=== PATIENT | female | born 1980 | race Caucasian/White ===

== ENCOUNTER → 2017-05-11 | Outpatient (CLI) | payer OTHER ==
[2017-05-17 00:09] LABS: D001-IgE D pteronyssinus <0.10 kU/L (Class 0); E005-IgE Dog Dander 0.36 kU/L (Class I); G002-IgE Bermuda Grass 0.26 kU/L (Class 0/I); G008-IgE Kentucky Bluegrass 0.48 kU/L (Class I); M001-IgE Penicillium chrysogen < 0.10 kU/L (Class 0); M002 IgE Cladosporium herbaru < 0.10 kU/L (Class 0); M003 IgE Aspergillus fumigatu < 0.10 kU/L (Class 0); M006-IgE Alternaria alternata < 0.10 kU/L (Class 0); T001-IgE Maple/Box Elder < 0.10 kU/L (Class 0); T003-IgE Common Silver Birch < 0.10 kU/L (Class 0); T007-IgE Oak, White < 0.10 kU/L (Class 0); T008-IgE Elm, American < 0.10 kU/L (Class 0); T015-IgE Ash, White < 0.10 kU/L (Class 0); T041-IgE Hickory, White < 0.10 kU/L (Class 0); W001-IgE Ragweed, Short < 0.10 kU/L (Class 0); W009-IgE Plantain, English < 0.10 kU/L (Class 0); W014-IgE Pigweed, Rough < 0.10 kU/L (Class 0); W018-IgE Sheep Sorrel < 0.10 kU/L (Class 0)
== END ==
LOC: M SMT 10:00
PROVIDERS: ATTEND Internal Medicine Pulmonary Disease
DX: J45.30 Mild persistent asthma, uncomplicated (principal); R05 Cough

== ENCOUNTER → 2017-11-01 | Outpatient (CLI) | payer OTHER | LOC: M LRY 19:02 | DX: R07.1 Chest pain on breathing (principal) | CPT/HCPCS: 71046; 87804 ==

== ENCOUNTER → 2017-11-24 | Outpatient (REF) | payer OTHER | LOC: M SFHCLERA 18:17 | DX: R50.9 Fever, unspecified (principal) ==

== ENCOUNTER → 2017-11-24 | Outpatient (CLI) | payer OTHER | LOC: M LRY 19:28 | DX: R09.89 Other specified symptoms and signs involving the circulatory and respiratory systems (principal) | CPT/HCPCS: 71046 ==

== ENCOUNTER 2019-11-14 08:24 | Day surgery (SDC) | payer OTHER ==
[~2019-11-14] VITALS: Ht 165.1 cm; Wt 64.0 kg
[~2019-11-14 08:24] MED LIST: BACITRACIN PWD 50,000 UNITS VIAL As Ordered ONE; BUPIVACAINE LIPOSOME/PF 1.3% 20ML VIAL (13.3MG/ML)(EXPAREL)(C9290 PER1MG) As Ordered ONE; LIDOCAINE 1% MDV 20ML VIAL SQ PRN; LR 1,000 ML IV SCH; NO ITAB PO; PROAAER10 INH
[2019-11-14] MEDS ORDERED: MIDAZOLAM INJ 2 MG/2 ML VIAL (J2250) As Ordered ONE (08:51)
[2019-11-14] MEDS ORDERED: propofoL 200 MG/20 ML VIAL As Ordered ONE (08:51)
[2019-11-14] MEDS ORDERED: ROCURONIUM BROMIDE 50 MG/5 ML VIAL As Ordered ONE (08:52)
[2019-11-14] MEDS ORDERED: dexameTHASONE 4 MG/ML 1ML VIAL (J1100) As Ordered ONE (08:52)
[2019-11-14] MEDS ORDERED: fentaNYL 250 MCG/5 ML INJECTION (J3010) As Ordered ONE (08:52)
[2019-11-14] MEDS ORDERED: LIDOCAINE 2% INJ 100 MG/5 ML SDV (FOR ANES.) As Ordered ONE (08:52)
[2019-11-14] MEDS ORDERED: ONDANSETRON 4MG/2ML VIAL (J2405) As Ordered ONE (08:52)
[2019-11-14] MEDS ORDERED: ceFAZolin SOD 1 GM in D5W MINI-BAG PLUS 50 ML IV ONE (09:00)
[2019-11-14] MEDS ORDERED: SCOPOLAMINE 1MG TRANSDERMAL PATCH TOP ONE (09:30)
[2019-11-14] MEDS ORDERED: PHENYLephrine HCL 500 MCG/5 ML (100MCG/ML) SYRINGE (J2370) As Ordered ONE (10:46)
[2019-11-14] MEDS ORDERED: ePHEDrine SULFATE 25 MG/5 ML(5MG/ML) SYRINGE As Ordered ONE (10:54)
[2019-11-14] MEDS ORDERED: METOCLOPRAMIDE INJ 10MG/2ML VIAL (J2765) As Ordered ONE (11:08)
[2019-11-14] MEDS ORDERED: ACETAMINOPHEN 1000MG 100ML IV BTL (OFIRMEV) (J0131 PER 10MG) As Ordered ONE (11:25)
[2019-11-14] MEDS ORDERED: SUGAMMADEX SODIUM 500 MG/5 ML VIAL (BRIDION) As Ordered ONE (11:59)
[2019-11-14] MEDS ORDERED: HYDROmorphone HCL 2 MG/ML 1ML VIAL (J1170) As Ordered ONE (12:33)
[2019-11-14] MEDS ORDERED: LR 1,000 ML IV SCH ×2 (13:15→13:45)
[2019-11-14] MEDS ORDERED: ONDANSETRON 4MG/2ML VIAL (J2405) IV PRN ×2 (13:15→13:45)
--- NOTE | 2019-11-14 13:15 | POST-OPPD ---
Postoperative Procedure Note Date Of Procedure: Nov 14, 2019 PREOPERATIVE DIAGNOSIS: Panniculitis POSTOPERATIVE DIAGNOSIS: same FINDINGS: pannus extending below mons pubis. Diathesis 7 cm PROCEDURE: Extended panniculectomy, rectus muscle plication. SURGEON: Dr Chua ANESTHESIA: General SPECIMENS: Pannus 977gm ESTIMATED BLOOD LOSS: 50cc REPLACED: none DRAINS: 10 mm MOY x2 COMPLICATIONS: none POSTOPERATIVE CONDITION: stable [id number] FERNANDA CHUA DO Nov 14, 2019 13:15
[2019-11-14] MEDS ORDERED: oxyCODONE 5MG TAB PO PRN (13:45)
[2019-11-14] MEDS ORDERED: HYDROMORPHONE HCL 0.5 MG/ 0.5 ML SYRINGE (J1170 PER 1) IV PRN (13:45)
[2019-11-14] MEDS ORDERED: METOCLOPRAMIDE INJ 10MG/2ML VIAL (J2765) IV PRN (13:45)
[2019-11-14] MEDS ORDERED: fentaNYL 100 MCG/2 ML INJECTION (J3010) IV PRN (13:45)
[2019-11-14 15:30] VITALS: BP 122/71
[2019-11-14] MEDS ORDERED: MORPHINE 4 MG/ML 1ML VIAL/SYRINGE (J2270) IV PRN (15:30)
[2019-11-14 16:00] VITALS: BP 108/70
[2019-11-14 17:00] VITALS: BP 91/53
[2019-11-14] MEDS: ACETAMINOPHEN TAB 650MG DOSE (2X325MG) PO PRN (17:21)
[2019-11-14 18:00] VITALS: BP 92/56
[2019-11-14] MEDS: ceFAZolin SOD 1 GM in D5W MINI-BAG PLUS 50 ML IV SCH (18:11)
[2019-11-14 19:00] VITALS: BP 94/58
[2019-11-14] MEDS: FERROUS SULFATE 325MG TAB PO SCH (21:16)
[2019-11-14 22:00] VITALS: BP 104/59
[2019-11-15] MEDS: ACETAMINOPHEN TAB 650MG DOSE (2X325MG) PO PRN ×3 (00:47→15:21)
[2019-11-15 02:00] VITALS: BP 103/59
[2019-11-15] MEDS: ceFAZolin SOD 1 GM in D5W MINI-BAG PLUS 50 ML IV SCH (02:09)
[2019-11-15 06:00] VITALS: BP 103/59
--- NOTE | 2019-11-15 08:17 | IPNPDOC ---
Subjective General Date Seen: Nov 15, 2019 Subject Chief Complaint/History The patient is a 39-year-old female admitted with a reason for visit of Panniculitis. S/p extended panniculectomy POD 1. Doing well. Pain controlled with Percocet. Tolerating diet Ambulating. Current Medications Current Medications Current Medications Medications (Trade) Dose Ordered Sig/Kimberlee Route PRN Reason Start Time Stop Time Status Last Admin Dose Admin Acetaminophen (Tylenol Tab) 650 mg Q6H PRN PO MILD PAIN (PS 1-4) 11/14/19 13:15 11/15/19 00:47 Cefazolin Sodium 1 gm/Dextrose 50 ml @ 100 mls/hr Q8H IV 11/14/19 19:00 11/15/19 03:29 DC 11/15/19 02:09 Fentanyl Citrate (Sublimaze) 25 mcg Q5MP PRN IV PAIN LEVEL 5-10 11/14/19 13:45 11/14/19 14:45 DC Ferrous Sulfate (Ferrous Sulfate) 325 mg BID PO 11/14/19 21:00 11/14/19 21:16 Hydromorphone HCl (Dilaudid) 0.2 mg Q5MP PRN IV PAIN LEVEL 4-7 11/14/19 13:45 11/14/19 14:45 DC Lactated Ringer's 1,000 ml @ 100 mls/hr Q10H IV 11/14/19 06:00 11/14/19 13:19 DC 11/14/19 08:42 Lactated Ringer's 1,000 ml @ 100 mls/hr Q10H IV 11/14/19 13:15 11/14/19 20:16 DC 11/14/19 17:22 Lactated Ringer's 1,000 ml @ 100 mls/hr Q10H IV 11/14/19 13:45 11/14/19 14:45 DC Lidocaine HCl (LIDOCAINE 1% MDV 20ml) 0.1 ml ONCE PRN SQ DISCOMFORT BEFORE IV START 11/14/19 06:00 11/14/19 13:19 DC Metoclopramide HCl (REGLAN INJection) 10 mg Q6HP PRN IV NAUSEA OR VOMITING 11/14/19 13:45 11/14/19 14:45 DC Miscellaneous (Unresolved Clarification Entry) SEE LABEL COMMENTS DAILY XX 11/14/19 09:00 Morphine Sulfate (Morphine Sulfate Inj) 4 mg Q4H PRN IV SEVERE PAIN (PS 8-10) 11/14/19 15:30 11/14/19 20:14 Ondansetron HCl (ZOFRAN INJection) 4 mg Q4H PRN IV NAUSEA OR VOMITING 11/14/19 13:15 Ondansetron HCl (ZOFRAN INJection) 4 mg Q4HP PRN IV NAUSEA OR VOMITING 11/14/19 13:45 11/14/19 14:45 DC Oxycodone HCl (Roxicodone, Oxyir) 5 mg ASDIRECTED PRN PO PAIN LEVEL 1-4 11/14/19 13:45 11/14/19 14:45 DC Allergies Coded Allergies: levofloxacin (Verified Allergy, Unknown, 11/10/19) Objective Physical Examination Examination GENERAL APPEARANCE:Patient seen, laying in bed, awake, alert, and oriented. Comfortable, in no acute distress. SKIN: Warm and moist. LUNGS: Clear to auscultation bilaterally. No wheezing appreciated. HEART: No chest wall abnormalities. Regular rate and rhythm with no murmurs appreciated. ABDOMEN: Abdomen is soft, non-tender, non-distended. Incision intact. Umbilicus viable. MOY drains with serosanguinous drainage. R55 L20 cc/24hr drain. EXTREMITIES: No edema identified. No calf tenderness. Vital Signs Vital Signs Date Time Temp Pulse Resp B/P (MAP) Pulse Ox O2 Delivery O2 Flow Rate FiO2 11/15/19 06:00 98.5 57 19 103/59 (74) 100 Room Air 11/14/19 13:10 3 I&Os I&O- Last 24 Hours up to 6 AM 11/15/19 06:00 Intake Total 3150 ml Output Total 2325 ml Balance 825 ml Impression Healing well. Continue with guarded ambulation. Regular diet MOY monitoring. D/c planning. Plan / VTE VTE Prophylaxis Ordered?: Yes FERNANDA CHUA DO Nov 15, 2019 08:17
[2019-11-15] MEDS: FERROUS SULFATE 325MG TAB PO SCH (09:12)
[2019-11-15] MEDS ORDERED: PERC5TAB12 PO (11:56)
--- NOTE | 2019-11-16 08:07 | RO ---
DATE OF PROCEDURE: 11/14/2019 PREOPERATIVE DIAGNOSIS: Panniculitis. POSTOPERATIVE DIAGNOSIS: Panniculitis. PROCEDURE: Extended panniculectomy, rectus muscle plication. ATTENDING SURGEON: Laura Munroe DO ANESTHESIA: General. FINDINGS: Pannus extending below mons pubis and rectus diastasis. SPECIMEN SENT: Pannus 977 grams. BLOOD LOSS: 50 mL. REPLACEMENTS NEEDED: None. DRAIN: 10 mm Rafiq-Lewis drain. COMPLICATIONS: No complications. DESCRIPTION OF PROCEDURE: This is a 39-year-old female who had gastric bypass with massive weight loss. Patient had significant diastasis and also significant pannus. She is a good candidate for extended panniculectomy with rectus muscle plication and repair of diastasis. All risks and benefits and alternatives were discussed with the patient in detail. She is ready to proceed. The day of surgery, she was marked in an upright position in preoperative holding area. Informed consent confirmed. Then she was brought into the operating room, placed in supine position. Preoperative antibiotics were given. Sequential stockings placed on her lower calves. General anesthesia was induced. She was prepped and draped in the usual sterile fashion. A Burdick catheter was introduced in the bladder without any difficulties with clear urine. A low incision was marked 7 cm from the labial crease. Then, we started our incision with #10 blade, carrying out the lower abdominal incision. Then, dissection was carried out using electrocautery and the PEAK cautery until umbilicus was identified. Then, a rhomboid incision was made around the umbilicus, leaving it in place. We continued raising flap superiorly to the xiphoid process and the costal margins laterally. The rectus muscle was examined. There was no hernia; however, there was 7 cm diastasis at the mid abdominal line, which was ligated using interrupted #0 Vicryl and then a running #0 PDS suture. Then patient was placed in the reflex position. The excess tissue inferiorly was measured and resected. The flap was readjusted by the lower incision. We started our closure with interrupted #0 Vicryl sutures and followed by #3-0 Monocryl sutures as well. Excess skin laterally was resected, eliminating the dog ears. 10 mm Rafiq-Lewis drain was placed through the lateral portion of the inferior incision. After that closure was completed, we made separate rhomboid incision to bring out the umbilical stump, which was in good vascular perfusion. It was brought out and sutured in place with interrupted #3-0 and #4-0 Monocryl sutures and #5-0 plain gut suture. Lower abdominal incision was dressed with Prineo dressing and a bulky dressing. Umbilicus was dressed with Xeroform and a bulky dressing. Then, compression garment was placed. The patient was extubated in the operating room without any difficulty and was transferred to recovery room in stable condition. DALJIT
== END 2019-11-15 16:05 | disposition home or self-care (01) ==
LOC: M SDC 08:24 → M MS5PR 15:15 → M SDC 11-15 16:05
PROVIDERS: ATTEND Plastic Surgery Surgery of the Hand
DX: M79.3 Panniculitis, unspecified (principal); Z98.84 Bariatric surgery status; D64.9 Anemia, unspecified; G43.909 Migraine, unspecified, not intractable, without status migrainosus; J45.909 Unspecified asthma, uncomplicated; K21.9 Gastro-esophageal reflux disease without esophagitis
CPT/HCPCS: 15830; 15847; 88302; 96361; 96365; 96366; 96375; C9290; J0131; J0690; J1100; J1170; J2250; J2270; J2370; J2405; J2765; J3010

== ENCOUNTER → 2020-01-05 | Outpatient (CLI) | payer OTHER, SELFPAY ==
[~2020-01-05] MED LIST changes: -BACITRACIN PWD 50,000 UNITS VIAL As Ordered ONE; -BUPIVACAINE LIPOSOME/PF 1.3% 20ML VIAL (13.3MG/ML)(EXPAREL)(C9290 PER1MG) As Ordered ONE; -LIDOCAINE 1% MDV 20ML VIAL SQ PRN; -LR 1,000 ML IV SCH; +PERC5TAB12 PO
[2020-01-05 14:10] LABS: BASO # 0.1 10^3/uL (0.0-0.2); BASO % 0.6 % (0.0-1.0); EOS # 0.3 10^3/uL (0.0-0.5); EOS % 3.2 % (0.0-3.0); HEMATOCRIT 38.3 % (36.0-47.0); HEMOGLOBIN 12.1 g/dl (12.0-15.5); LYMPH # 2.6 10^3/uL (1.5-5.0); LYMPH % 33.2 % (24.0-44.0); MEAN CORPUSCULAR HGB CONC 31.6 g/dl (32.0-36.5); MEAN CORPUSCULAR VOLUME 88.7 fl (80.0-96.0); MONO # 0.5 10^3/uL (0.0-0.8); MONO % 5.9 % (0.0-5.0); NEUTROPHILS # 4.5 10^3/uL (1.5-8.5); NEUTROPHILS % 56.8 % (36.0-66.0); PLATELET COUNT, AUTOMATED 280 10^3/uL (150-450); RED BLOOD COUNT 4.32 10^6/uL (4.00-5.40); WHITE BLOOD COUNT 7.8 10^3/uL (4.0-10.0)
[2020-01-05 14:36] LABS: BLOOD UREA NITROGEN 11 MG/DL (7-18); CALCIUM LEVEL 8.6 MG/DL (8.5-10.1); CARBON DIOXIDE LEVEL 27 MEQ/L (21-32); CHLORIDE LEVEL 108 MEQ/L (98-107); CREATININE FOR GFR 0.84 MG/DL (0.55-1.30); GLOMERULAR FILTRATION RATE > 60.0 (>60); GLUCOSE, FASTING 85 MG/DL (70-100); POTASSIUM SERUM 4.2 MEQ/L (3.5-5.1); SODIUM LEVEL 140 MEQ/L (136-145)
== END ==
LOC: M LAB 12:33
PROVIDERS: ATTEND Plastic Surgery Surgery of the Hand
DX: R21 Rash and other nonspecific skin eruption (principal)

== ENCOUNTER 2022-10-27 10:13 | Day surgery (SDC) | payer OTHER ==
[~2022-10-27] VITALS: Ht 162.6 cm; Wt 62.3 kg
[~2022-10-27 10:13] MED LIST changes: +ALBU90AE IH; +BUPR15TA PO; +DULO1CAP6 PO; +FERR325T18; +NS 1,000 ML IV ONE; +OMEP40CA5 PO; +PROP20TA72 PO; +SUCR1SS; +SUMA100T2 PO; +TIZA2TA PO
[2022-10-27] MEDS ORDERED: propofoL 200 MG/20 ML VIAL As Ordered ONE ×3 (11:09→12:13)
[2022-10-27] MEDS ORDERED: GLYCOPYRROLATE INJ 0.2 MG/ML 2 ML VIAL As Ordered ONE (11:09)
[2022-10-27] MEDS ORDERED: LIDOCAINE 2% 100MG/5ML SDV (FOR ANES.) As Ordered ONE (11:09)
[2022-10-27 12:45] VITALS: BP 118/75
== END 2022-10-27 12:55 | disposition home or self-care (01) ==
LOC: M OPP 10:13
PROVIDERS: ATTEND Internal Medicine Gastroenterology
DX: K64.8 Other hemorrhoids (principal); D12.4 Benign neoplasm of descending colon; Z80.0 Family history of malignant neoplasm of digestive organs; K28.5 Chronic or unspecified gastrojejunal ulcer with perforation; K31.89 Other diseases of stomach and duodenum; J45.909 Unspecified asthma, uncomplicated; Z79.51 Long term (current) use of inhaled steroids; Z79.899 Other long term (current) drug therapy; Z88.1 Allergy status to other antibiotic agents; Z88.5 Allergy status to narcotic agent; Z88.6 Allergy status to analgesic agent; Z98.84 Bariatric surgery status